=== PATIENT | male | born 1990 | race Caucasian/White ===

== ENCOUNTER → 2024-08-09 | Outpatient (CLI) | payer MEDICAID, SELFPAY ==
[2024-08-09 10:19] LABS: Absolute Lymphocyte Count 1.34 X10^3/uL (0.83-4.51); Absolute Neutrophil Count 3.6 X10^3/uL (2.0-7.7); Basophil# 0.03 X10^3/uL; Basophil% 0.6 % (0-1); Eosinophil# 0.08 X10^3/uL; Eosinophils% 1.5 % (0-5); Hemoglobin 14.5 g/dL (13.0-16.5); Lymphocyte # 1.34 X10^3/ul (0.83-4.51); Lymphocyte % 24.6 % (19-41); Mean Corp Hgb Conc 34.5 g/dL (32-36); Mean Corpuscular Hgb 31.7 pg (27.0-32.0); Mean Corpuscular Volume 91.7 fL (80-94); Mean Platelet Vol. 9.4 fl (6.2-12.0); Monocyte% 7.3 % (0-10); NRBC Flagged by Analyzer 0 % (0-5); Neutrophil # 3.59 X10^3/uL (2.7-7.7); Neutrophil % 65.8 % (47-70); Platelet Count 331 K/mm3 (150-450); RBC Distribution Width CV 12.2 % (11.6-14.6); RBC Distribution Width SD 40.3 fl (35.1-43.9); Red Blood Count 4.58 M/mm3 (4.6-6.2); White Blood Count 5.5 K/mm3 (4.4-11.0)
[2024-08-09 11:04] LABS: ALB/GLOB Ratio 1.2 RATIO (0.9-2.4); AST(SGOT) 21 U/L (15-37); Alanine Aminotransfer ALT/SGPT 20 U/L (16-61); Alkaline Phosphatase 79 U/L (45-117); Anion Gap 6 (5-15); BUN 19 mg/dL (7-18); BUN/Creat Ratio 19.2 RATIO (10-20); Calcium,Total 9.1 mg/dL (8.5-10.1); Chloride 107 mmol/L (98-107); Cholesterol 183 mg/dL (200); Creatinine, Serum 0.99 mg/dL (0.70-1.30); EST Glomerular Filtration Rate 92 mL/min (>60); Est Glom Filt Rate - Afr Amer 111 mL/min (>60); Globulin 3.3 g/dL (2.2-4.2); Glucose 84 mg/dL (74-106); High Density Lipoprotein 47 mg/dL; Potassium 3.7 mmol/L (3.5-5.1); Protein, Total 7.3 g/dL (6.4-8.2); Sodium Level 140 mmol/L (136-145); Triglycerides 66 mg/dL; Very Low Density Lipoprotein 13 mg/dL (5-40)
== END | disposition home or self-care (01) ==
DX: Z13.220 Encounter for screening for lipoid disorders (principal); G47.33 Obstructive sleep apnea (adult) (pediatric)
CPT/HCPCS: 36415; 80053; 80061; 84443; 85025

== ENCOUNTER 2024-12-31 07:44 | Day surgery (SDC) | payer MEDICAID, SELFPAY ==
[2024-12-31] VITALS (8 sets, daily range): BP systolic 105–127; BP diastolic 63–81; PULSE 64–76; RESP 16; TEMP 36.4–37; O2SAT 93–99; BMI 35.0
--- NOTE | 2024-12-31 07:59 | PCM.PRE.AN2 ---
ASA Classification* ASA Classification ASA Classification: 2 Assessment & Plan Anesthesia* Anesthesia Assessment Anesthesia Assessment: Discussed sedation and/or anesthesia options, risks, benefits, and alternatives with patient/parents/legal guardian/POA. Questions invited. The patient/parents/legal guardian/POA seems to understand and agrees to proceed with anesthesia plan. Reviewed the physical assessment, medical history, allergy history and patient home medications list prior to surgery/procedure/anesthetic and documented any changes. Performed airway and anesthesia risk assessments. Anesthesia Type Anesthesia Type: MAC Anesthesia Focused Assessment* Airway Assessment Mouth opens: >3 cm Mallampati Score: II Focused Labs Anesthesia Preop lab: CBC WBC 5.5 K/mm3 (4.4-11.0) 08/09/24 09:57 08/09/24 RBC 4.58 M/mm3 (4.6-6.2) L 08/09/24 09:57 08/09/24 Hgb 14.5 g/dL (13.0-16.5) 08/09/24 09:57 08/09/24 Hct 42.0 % (40-54) 08/09/24 09:57 08/09/24 Plt Count 331 K/mm3 (150-450) 08/09/24 09:57 08/09/24 CHEMISTRY Potassium 3.7 mmol/L (3.5-5.1) 08/09/24 09:57 08/09/24 Sodium 140 mmol/L (136-145) 08/09/24 09:57 08/09/24 BUN 19 mg/dL (7-18) H 08/09/24 09:57 08/09/24 Creatinine 0.99 mg/dL (0.70-1.30) 08/09/24 09:57 08/09/24 Glucose 84 mg/dL (74-106) 08/09/24 09:57 08/09/24 TSH 1.180 uIU/mL (0.358-3.740) 08/09/24 09:57 08/09/24 COAG Pre-Assessment Diagnosis/Proposed Procedure Planned Operative Procedure(s): EGD Anesthesia History 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 When Was Last Pacemaker Check QUESTION #4 FULL TEXT: You/Your Family Experience fever (hyperthermia) with Anesthesia Last Oral Intake Last Oral intake: Last Oral Intake NPO since Meds taken in AM with sips of water? Meds patient instructed to take am of surgery PONV PONV - air conditioning coil assembler: PONV - air conditioning coil assembler Female No 12/28/24 11:43 HX of Motion Sickness No 12/28/24 11:43 HX of N/V After Surgery No 12/28/24 11:43 Non-Smoker Yes 12/28/24 11:43 Duration of Surgery greater No 12/28/24 11:43 than 60 minutes Number of Risk Factors 1 12/28/24 11:43 PONV Score Low Risk 12/28/24 11:43 Respiratory Assessment Respiratory Assessment - air conditioning coil assembler: Respiratory Tract Infection Hx - air conditioning coil assembler Hx Respiratory Tract Infection No 12/28/24 11:43 STOP Sleep Apnea STOP Sleep Apnea - air conditioning coil assembler: STOP Sleep Apnea - air conditioning coil assembler Hx Hypertension No 12/28/24 11:43 Hx Sleep Apnea Yes 12/28/24 11:43 CPAP Yes 12/28/24 11:43 BIPAP No 12/28/24 11:43 Do you snore loudly (louder No 12/28/24 11:43 than talking or can be heard Do you often feel tired/ No 12/28/24 11:43 fatigued/ sleepy during daytime? Has anyone observed you stop No 12/28/24 11:43 breathing during sleep? STOP Results Positive 12/28/24 11:43 QUESTION #5 FULL TEXT : Do you snore loudly (louder than talking or can be heard through closed doors)? 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 Specify any problems Hx of Preganancy in last 3 N/A 12/28/24 11:43 Months Nurse Filling Out Transfusion DSCHRIBER 12/28/24 11:43 & Questions: Date: 12/28/24 12/28/24 11:43 Time: 11:44 12/28/24 11:43 Patient unable to answer at this time (ie. confused, unrespo /Reproduction History /Reproductive History - air conditioning coil assembler: /Reproductive Hx- air conditioning coil assembler Hx Now No 12/28/24 11:43 Gestational Age (in weeks): EDC: Hx Hx Para Hx Section SAB No 12/28/24 11:43 PFSH Medical History Spinal stenosis Back pain CPAP (continuous positive airway pressure) dependence Non-smoker GERD (gastroesophageal reflux disease) Home Medications ?Medication ?Instructions ?Recorded ?Last Taken ?Type acetaminophen 325 mg capsule 325 mg PO ONCE PRN pain 04/12/20 12/30/24 History (Tylenol) omeprazole 10 mg capsule,delayed 10 mg PO DAILY 04/12/20 12/30/24 History release Allergy/AdvReac Type Severity Reaction Status Date / Time diphenhydramine (From Allergy Unknown Verified 12/31/24 07:55 Benadryl) Family History Other Diabetes Hypertension Surgical History Hx of colonoscopy History of esophagogastroduodenoscopy (EGD) Social History Smoking Status: Never smoker alcohol intake: never Review of Systems (Anesthesia) ROS Narrative System reviewed and no additional complaints, except as documented.
[2024-12-31] MEDS: Lactated Ringers 1,000 ML 15 ML IV (08:02)
--- NOTE | 2024-12-31 08:15 | EGD_PTH ---
PATIENT: HAWA MEDINA LOC: EN U#:[id number] AGE/SX: 34/M ROOM: RE12/31/[address]: Dr. Neil Isaacs MD : 1990 BED: DIS: 12/31/2024 SPEC #: [id number] RECD: 12/31/24 12:50 STATUS: OSITO LINDA #: [id number] [place]: 12/31/24 08:[address]: Neil Isaacs DEPT: SURGICAL PATHOLOGY RECD BY: Alexis Barney ENTERED: 12/31/24 13:32 SP TYPE: EGD BIOPSY OT DR: Shazia Avalos, [facility], [facility] Tissues: A - Gastric mucous membrane B - Esophagus, NOS Procedures: Immunohistochemical Stains Surgery Specimen Level IV HEADER OPERATION: EGD with biopsy PRE-OP DIAGNOSIS: GERD TISSUE SUBMITTED: A- Gastric antrum biopsy, B- Gastroesophageal junction biopsy *rule out Tao's esophagus* MICROSCOPIC DIAGNOSIS A. Stomach, antrum, biopsy: * Chronic gastritis with features of reactive gastropathy. * IHC negative for H pylori organisms. B. Gastroesophageal junction, biopsy: * Squamous mucosa negative for eosinophils. * Columnar mucosa negative for goblet cell metaplasia. * Negative for dysplasia. MICROSCOPIC DESCRIPTION Slides are reviewed. All matched controls reacted appropriately. These tests were developed and their performance characteristics determined by [facility]. They may not have been cleared or approved by the U.[place]. Food and Drug Administration. The FDA has determined that such clearance or approval is not necessary. The above immunohistochemical/dualISH markers are ordered and reviewed by the Pathologist. GROSS DESCRIPTION A. Received in formalin in a container labeled with the patient's name, date of , and antrum biopsy for H. pylori and path are 2 pineda-pink fragments of mucosal tissue measuring 0.3 x 0.3 x 0.2 cm and 0.4 x 0.3 x 0.3 cm. Submitted in toto in A1. B. Received in formalin in a container labeled with the patient's name, date of , and GE junction biopsy rule out Tao's are multiple pineda-pink fragments of mucosal tissue measuring 1.0 x 0.4 x 0.3 cm in aggregate. Submitted in toto in B1. [facility] 12-31-2024 CPT:35081j8,81504
--- NOTE | 2024-12-31 08:23 | PCM.HP.STD ---
HPI - General General Date of Admission: 12/31/24 Date of Service: 12/31/24 Chief Complaint: Chronic reflux HPI Narrative HAWA MEDINA, is a 34 M who presents for EGD. His last EGD was greater than 12 years ago. He has had chronic heartburn and reflux symptoms which have steadily worsened over the years. He is on omeprazole which seems to be helping but he is still having symptoms. He was recommended to undergo EGD. [facility] Medical History (Reviewed 12/31/24 @ 08: by Dr. Neil Isaacs MD) Spinal stenosis Back pain CPAP (continuous positive airway pressure) dependence Non-smoker GERD (gastroesophageal reflux disease) Home Medications ?Medication ?Instructions ?Recorded ?Last Taken ?Type acetaminophen 325 mg capsule 325 mg PO ONCE PRN pain 04/12/20 12/30/24 History (Tylenol) omeprazole 10 mg capsule,delayed 10 mg PO DAILY 04/12/20 12/30/24 History release Allergy/AdvReac Type Severity Reaction Status Date / Time diphenhydramine (From Allergy Unknown Verified 12/31/24 07:55 Benadryl) Family History Other Diabetes Hypertension Surgical History Hx of colonoscopy History of esophagogastroduodenoscopy (EGD) Social History Smoking Status: Never smoker alcohol intake: never Vital Signs Vital Signs Vital Signs: 12/31/24 07:56 12/31/24 07:58 Temperature 98.6 F Temperature Source Temporal Pulse Rate 76 Respiratory Rate 16 Respiratory Pattern Normal Blood Pressure 127/81 H Blood Pressure Mean 96 Blood Pressure Source Monitor Blood Pressure Position Semi-Fowlers Blood Pressure Location Left Arm Pulse Ox 99 Oxygen Delivery Method Room Air Weight Weight: 217 lb Body Mass Index (BMI) 35.0 Physical Exam Const alert, oriented x3 and no apparent distress Assessment & Plan Assessment/Plan (1) GERD (gastroesophageal reflux disease): PLAN: Plan 34-year-old male with chronic GERD. I have recommended EGD. We discussed the details of the planned procedure and he wishes to proceed. This will begin momentarily. Charges/Coding Visit Charges Inpatient E&M: 73180 Init Hosp L1
--- NOTE | 2024-12-31 08:52 | OP.CCLET_ITS ---
12/31/2024 Shazia Avalos Np, [employer] Job Titles-c Re : Upper GI endoscopy procedure for Michael Harmon Dear Robbie This procedure was performed on Tuesday, December 31, 2024. My impressions and recommendations are as follows: Impressions : - Normal first portion of the duodenum and second portion of the duodenum. - Gastritis. Biopsied. - Small hiatal hernia. - LA Grade A reflux esophagitis with no bleeding. Biopsied. Recommendations : - Discharge patient to home (ambulatory). - GERD prevention diet. - Continue present medications. - Await pathology results. My findings are described in the full procedure note, which is enclosed. If I can be of further assistance, please feel free to contact me at . Sincerely, Neil Isaacs MD 12/31/2024 8:52:15 AM This report has been signed electronically.
--- NOTE | 2024-12-31 08:52 | OP.EGD_ITS ---
Patient Name: Michael Harmon Procedure Date: 12/31/2024 8:34 AM Date of : 1990 Age: 34 Procedure: Upper GI endoscopy Indications: Heartburn Providers: Neil Isaacs MD Medicines: Monitored Anesthesia Care Patient Profile: Refer to note in patient chart for documentation of history and physical. Patient has symptoms of chronic heartburn. Complications: No immediate complications. Estimated blood loss: Minimal. Procedure: Pre-Anesthesia Assessment: - Prior to the procedure, a History and Physical was performed, and patient medications and allergies were reviewed. The patient's tolerance of previous anesthesia was also reviewed. The risks and benefits of the procedure and the sedation options and risks were discussed with the patient. All questions were answered, and informed consent was obtained. Prior Anticoagulants: The patient has taken no anticoagulant or antiplatelet agents. ASA Grade Assessment: II - A patient with mild systemic disease. After reviewing the risks and benefits, the patient was deemed in satisfactory condition to undergo the procedure. After obtaining informed consent, the endoscope was passed under direct vision. Throughout the procedure, the patient's blood pressure, pulse, and oxygen saturations were monitored continuously. The gastroscope was introduced through the mouth, and advanced to the second part of duodenum. The upper GI endoscopy was accomplished without difficulty. The patient tolerated the procedure well. Moderate Sedation: See the other procedure note for documentation of moderate sedation with intraservice time. Scope In: 8:35:41 AM Scope Out: 8:44:37 AM Total Procedure Duration Time 0 hours 8 minutes 56 seconds Findings: The first portion of the duodenum and second portion of the duodenum were normal. Scattered mild inflammation characterized by erythema was found in the stomach. Biopsies were taken with a cold forceps for Helicobacter pylori testing. Verification of patient identification for the specimen was done by the nurse using the patient's name, date and medical record number. Estimated blood loss was minimal. A small hiatal hernia was present. LA Grade A (one or more mucosal breaks less than 5 mm, not extending between tops of 2 mucosal folds) esophagitis with no bleeding was found. Mucosa was biopsied with a cold forceps for histology randomly at the gastroesophageal junction. Verification of patient identification for the specimen was done by the nurse using the patient's name, date and medical record number. Impression: - Normal first portion of the duodenum and second portion of the duodenum. - Gastritis. Biopsied. - Small hiatal hernia. - LA Grade A reflux esophagitis with no bleeding. Biopsied. Recommendation: - Discharge patient to home (ambulatory). - GERD prevention diet. - Continue present medications. - Await pathology results. Procedure Code(s): --- Professional --- 19259, Esophagogastroduodenoscopy, flexible, transoral; with biopsy, single or multiple Diagnosis Code(s): --- Professional --- K29.70, Gastritis, unspecified, without bleeding K44.9, Diaphragmatic hernia without obstruction or gangrene R12, Heartburn K21.00, Gastro-esophageal reflux disease with esophagitis, without bleeding CPT copyright 2021 [employer]. All rights reserved. The codes documented in this report are preliminary and upon computer language coder review may be revised to meet current compliance requirements. Neil Isaacs MD 12/31/2024 8:52:15 AM This report has been signed electronically. Number of Addenda: 0 Note Initiated On: 12/31/2024 8:34 AM
--- NOTE | 2024-12-31 09:00 | PCM.POST.ANE ---
Anesthesia: Postop Eval I Current Vital Signs Temperature: 97.6 F Pulse Rate: 76 Blood Pressure: 115/63 Respiratory Rate: 16 Pulse Ox: 94 Oxygen Delivery Method: Room Air Assessment Airway patent: Yes Spontaneous unlabored respirations: Yes Mental status: Asleep nausea: No Vomiting: No Anesthesia Complication: No Fluid Hydration Crystalloid volume administer (ml): 300 Total IV fluid infused: 300 Progress Note Anesthesia document: Postop Eval 1 completed: Yes
--- NOTE | 2024-12-31 09:30 | PCM.POSTANE2 ---
Anesthesia Postop Eval I Sum Postop Eval Completion status Anesthesia document: Postop Eval 1 completed: Yes Anesthesia Postop Eval I Summary Anesthesia Postop Eval I Summary: Anesthesia Postop Eval I: Assessment Summary Airway patent Yes 12/31/24 09:01 [email or web address] Spontaneous unlabored Yes 12/31/24 09:01 [email or web address] respirations Mental status Asleep 12/31/24 09:01 [email or web address] nausea No 12/31/24 09:01 [email or web address] Vomiting No 12/31/24 09:01 [email or web address] Anesthesia Postop Eval I: Fluid Summary Crystalloid volume administer 300 12/31/24 09:01 [email or web address] (ml) Colloids volume administered ( ml) Blood Product volume administered (ml) Total IV fluid infused 300 12/31/24 09:01 [email or web address] Anesthesia Postop Eval I: Summary Notes Anesthesia Complication No 12/31/24 09:01 [email or web address] Anesthesia Complication Comment: Post-operative progress note Anesthesia: Postop Eval II Evaluation Mental status: Awake Pain Level: 0 nausea: No Vomiting: No
== END 2024-12-31 09:55 | disposition home or self-care (01) ==
LOC: EN 07:45 → AC 07:46
PROVIDERS: Visit Provider Surgery
PROC: 0DJ08ZZ Inspection of Upper Intestinal Tract, Via Natural or Artificial Opening Endoscopic (ICD-10-PCS; CPT 43235; principal; 2024-12-31 08:10)
DX: K29.50 Unspecified chronic gastritis without bleeding (principal); K21.00 Gastro-esophageal reflux disease with esophagitis, without bleeding; K44.9 Diaphragmatic hernia without obstruction or gangrene; Z79.899 Other long term (current) drug therapy
CPT/HCPCS: 43239; 88305; 88342; J2405